=== PATIENT | female | born 1965 | race Caucasian/White ===

== ENCOUNTER 2022-04-15 19:36 | Emergency (ER) | payer MEDICAID ==
[~2022-04-15] VITALS: Ht 157.5 cm; Wt 90.7 kg
--- NOTE | 2022-04-15 20:00 | NUR ---
Pt brought by partner, Alert and appropiate to age , pt presents to ER with cough , congestion and runny nose, skin pink and warm ,cap refill <3.
[2022-04-15 20:17] VITALS: BP_SYST 141
[2022-04-15] MEDS ORDERED: ALBUTEROL SULFATE 0.083% 2.5 MG/3 ML VIAL.NEB INH ONE (20:45)
[2022-04-15] MEDS ORDERED: IPRATROPIUM BROM 0.5 MG/2.5 ML VIAL.NEB (ATROVENT) INH ONE (20:45)
--- NOTE | 2022-04-15 20:50 | NUR ---
COVID AND FLU SAMPLE COLLECTED AND SENT TO LAB
[2022-04-15] MEDS ORDERED: ZIT250 PO (21:24)
[2022-04-15] MEDS ORDERED: PRED20TA PO (21:24)
--- NOTE | 2022-04-15 21:49 | NUR ---
Patient given written and verbal discharge instructions and verbalizes understanding. ER MD Klein discussed with patient the results and treatment provided. Patient in stable condition. ID arm band removed. Rx of Prednisone and Zithromax sent to preferred pharmacy. Patient educated on pain management and to follow up with PMD. Opportunity for questions provided and answered. Medication side effect fact sheet provided.
[2022-04-15 21:50] VITALS: BP_SYST 137
== END 2022-04-15 21:50 | disposition home or self-care (01) ==
LOC: SED 19:36
DX: J45.909 Unspecified asthma, uncomplicated (principal); R05.9 Cough, unspecified; R06.02 Shortness of breath; Z79.899 Other long term (current) drug therapy
CPT/HCPCS: 71045; 94640; 99283; J7613

== ENCOUNTER 2022-04-22 12:21 | Emergency (ER) | payer MEDICAID ==
[~2022-04-22] VITALS: Ht 157.5 cm; Wt 90.7 kg
[~2022-04-22 12:21] MED LIST: PRED20TA PO; ZIT250 PO
[2022-04-22 12:31] VITALS: BP_SYST 128
--- NOTE | 2022-04-22 14:45 | NUR ---
Pt brought in by family for chief complaint dizziness, cough, facial congestion. Pt complains of wheezing at the night time. Pt states phleghm is green. Pt states completed prednisone and Z-nataliya from last week ER visit with MD Klein.
[2022-04-22] MEDS ORDERED: predniSONE 20 MG TABLET PO ONE (15:00)
[2022-04-22] MEDS ORDERED: IPRATROPIUM/ALBUTEROL SULFATE 3 ML AMPUL.NEB (DUONEB) INH ONE (15:00)
--- NOTE | 2022-04-22 15:02 | NUR ---
nasal specimen collected sent to lab for analysis of influenza and covid.
--- NOTE | 2022-04-22 15:02 | NUR ---
Resp. therapist bedside providing treatment.
--- NOTE | 2022-04-22 15:07 | NUR ---
ER at bedside examining patient.
--- NOTE | 2022-04-22 15:31 | NUR ---
Pt to radiology unit with broadband technician'.
[2022-04-22] MEDS ORDERED: [UNRECOGNIZED DRUG - CODE] NS (15:51)
[2022-04-22] MEDS ORDERED: GUAI100S14 PO (15:51)
[2022-04-22] MEDS ORDERED: PSEU120T57 PO (15:51)
[2022-04-22] MEDS ORDERED: PRED20TA PO (15:51)
[2022-04-22] MEDS ORDERED: ALBMDI INH (15:51)
--- NOTE | 2022-04-22 16:20 | NUR ---
Patient given written and verbal discharge instructions and verbalizes understanding. ER MD discussed with patient the results and treatment provided. Patient in stable condition. ID arm band removed. Rx of sudafed, prednisone, guifenissen given. Patient educated on pain management and to follow up with PMD. Opportunity for questions provided and answered. Medication side effect fact sheet provided.
[2022-04-22 16:21] VITALS: BP_SYST 128
== END 2022-04-22 16:20 | disposition home or self-care (01) ==
LOC: SED 12:21
DX: J45.901 Unspecified asthma with (acute) exacerbation (principal); J32.9 Chronic sinusitis, unspecified; R05.9 Cough, unspecified; R09.81 Nasal congestion; R07.9 Chest pain, unspecified; I10 Essential (primary) hypertension; E78.5 Hyperlipidemia, unspecified; Z79.899 Other long term (current) drug therapy; Z20.822 Contact with and (suspected) exposure to COVID-19
CPT/HCPCS: 99284; 71045; 87426; 36415; 94640; 87804 ×2; J7512